=== PATIENT | female | born 1935 | race Caucasian/White ===

== ENCOUNTER 2021-11-18 09:53 | Outpatient (RCR) | payer MEDICARE, SELFPAY ==
--- NOTE | 2021-11-18 10:35 | PTOPEVAL ---
Thank you for referring Gita Orta to [facility].? The patient is scheduled to be seen for therapy? __3__x/week for 6 visits and 2x/week x 4 visits for total of 10 visits. Please review, sign, date and return this plan of care REJI. I agree with and certify that the following plan of care is medically necessary. Referring Physician Date Admitting Provider: Attending Provider: Partha Kat, Referring Provider: *PT Outpatient Evaluation Start: 11/18/21 10:06 Freq: Status: Active Protocol: Document 11/18/21 10:06 FELICITA (Rec: 11/18/21 10:34 [email or web address]) Therapy Assessment Status Assessment Status Assessment Status Evaluation Evaluation Information Problem Diagnosis 11/04/21 Onset low back pain Subjective Information Pt. reports she developed Query Text:As Reported By Patient/ intense back pain about 2 Family weeks ago. She describes pain going across the low back. Pain is most intense with standing and walking. Pt. reports that she can only stand for approximately 5-10 minutes due to pain. Pt. reports she has avoided any lifting since her pain came on . Pt. reports that she completes all ADL's and IADL's without complication prior to onset of her pain. She states that cleaning her home takes longer since the onset of pain and she has to have help with certain task. She reports that her goal for therapy is to decrease her pain. Prior Level of Function Activity Level (Last 3 Months) Occupation retired Hand Dominance Left Activity of Daily Living Ability Independent Indoor/Home Mobility Independent Community Mobility Independent Stairs Ability Independent Functional Cognition (Planning, Shopping Independent , Taking Medications) Cooking Yes Cleaning Yes Laundry Yes Shopping Yes Driving Yes Pain Assessment Timing of Pain Assessment Timing of Pain Assessment Pre-Treatment Pain Scale Pain Scale Used Numeric (1 - 10) Self Report Pain Assessment Lower Back Reported Pain Level 4 Pain Description
--- NOTE | 2022-02-03 12:44 | PCPTNOTE ---
Mrs. Orta attended a total of 6 treatment sessions. She has failed to return to the clinic and will be discharged from our care at this time. Refer to last daily note for pt. discharge status.
== END 2021-12-03 15:17 | disposition home or self-care (01) ==
LOC: CHSPT 09:53
PROVIDERS: PCP Internal Medicine; Visit Provider Internal Medicine
DX: M54.50 Low back pain, unspecified (principal)
CPT/HCPCS: 97014; 97110; 97161; 97530; G0283

== ENCOUNTER 2022-05-16 16:21 | Outpatient (RCR) | payer MEDICARE, SELFPAY ==
--- NOTE | 2022-05-16 17:24 | PTOPEVAL1 ---
Assessment and note entered by JT File, PT Evaluation Information Diagnosis R pubic rami fracture, R hip pain Onset 04/03/22 Subjective Information patient reports she fell on 04/03/22, she reports she got out of the car to get her hair done and reports she lost her balance and fell. she reports she went to [facility] for her ER care. she reports she had a fracture of her pelvis. she reports she continues to have pain with walking. she reports the pain will be from the groin all around her hip to the back. she reports her doctor would like her to begin therapy and work on getting rid of the walker. she reports she was using no AD prior to the fall. Reported Pain Level Pain Score 3: Self Report Assessment PT Clinical Summary mrs. collins presents to skilled PT services for evaluation and treatment of R hip/pelvic pain following a fall back in march of 2022. she had a fracture of the R pelvis during this fall. she is WBAT and has no restrictions as of this date. in addition to her hip and pelvic deficits, she also presents as a high fall risk and would benefit from skilled PT to address her balance and reduce this fall risk. she would benefit from continued skilled PT services to improve her objective/functional deficits and progress towards a return to her prior level functional activity performance/quality of life. Plan of Care Interventions Gait Training,Hot Pack/Cold Pack,Manual Therapy, Neuro Re-education,Patient/Caregiver Educati, Therapeutic Activities,Therapeutic Exercise PT Services Indicated Yes Treatment Frequency and 3x weekly for 12 visits Duration These treatments will address the objective and functional deficits as defined above. The patient will be advanced safely and appropriately in order for the patient to progress towards his/her prior level of function. Additional exercises will be introduced and as well as a comprehensive home exercise program upon discharge, if needed, ?to ensure carryover of functional gains achieved in the clinic. This treatment plan has been reviewed and agreement upon by the patient.
--- NOTE | 2022-06-06 14:39 | PTOPDC ---
Assessment and note entered by JT File, PT Evaluation Information Assessment Status Discharge Diagnosis R pubic rami fracture, R hip pain Onset 04/03/22 Subjective Information patient reports she feels good this date. she report she does have to keep her exercises to 20- 25 reps as 30 is too many for her at home. she reports she has no pain, and is ready to DC therapy today. Reported Pain Level Pain Score 0: Self Report Assessment PT Clinical Summary mrs. collins presents to skilled PT services for her 7th skilled therapy visit this date. she no longer has pain, uses no AD, ambulates with normal gait mechanics on flat ground and stairs, and displays 4+/5 or better overall LE strength. she has met nearly all goals for skilled PT. as of this date, per the patient's wishes and due to her progress towards goals, she will be DC'd from skilled PT services. Plan of Care Treatment Frequency and DC to independent HEP Duration
== END 2022-06-06 16:32 | disposition home or self-care (01) ==
LOC: CHSPT 16:21
DX: S32.591D Other specified fracture of right pubis, subsequent encounter for fracture with routine healing (principal)
CPT/HCPCS: 97110; 97112; 97161; 97530